=== PATIENT | female | born 1985 | race Caucasian/White ===

== ENCOUNTER 2024-01-09 19:09 | Observation (INO) | payer OTHER, SELFPAY ==
[2024-01-09 10:36] VITALS: BP 150/90
[2024-01-09 10:51] LABS: % Basophils 0.5 % (0-2); % Eosinophils 1.3 % (0-6); % Immature Granulocytes 0.1 % (0-0.5); % Lymphocytes 11.5 % (20.5-51.1); % Monocytes 6.3 % (1.7-9.3); % Neutrophils 80.3 % (42.2-75.2); Absolute Eosinophils 0.1 10^3/uL (0-0.7); Absolute Lymphocytes 0.9 10^3/uL (1.2-3.4); Absolute Monocytes 0.5 10^3/uL (0.1-0.6); Absolute Neutrophils 6.3 10^3/uL (1.4-6.5); Hematocrit 39.4 % (37.0-47.0); Hemoglobin 14.3 g/dL (12.0-16.0); Mean Corp Hgb Conc. 36.3 g/dL (33.0-37.0); Mean Corpuscular Hgb 30.8 pg (27.0-31.0); Mean Corpuscular Volume 84.9 fL (81.0-99.0); Mean Platelet Volume 9.4 fL (7.4-10.4); Nucleated Red Blood Cells % 0 %; Platelet Count 177 10^3/uL (130-400); Red Blood Cell Count 4.64 10^6/uL (4.20-5.40); Red Cell Dist. Width 12.3 % (11.5-14.5); White Blood Cell Count 7.8 10^3/uL (4.8-10.8)
[2024-01-09 11:09] LABS: ALT (SGPT) 13 U/L (0-35); AST (SGOT) 20 U/L (14-36); Albumin 4.6 g/dl (3.5-5.0); Alkaline Phosphatase 55 U/L (38-126); Blood Urea Nitrogen 16 mg/dl (7-17); Calcium 9.2 mg/dl (8.4-10.2); Carbon Dioxide 25 mmol/L (22-30); Chloride 105 mmol/L (98-107); Glucose 104 mg/dl (70-99); Potassium 3.8 mmol/L (3.5-5.1); Sodium 135 mmol/L (135-145); Total Bilirubin 1.3 mg/dl (0.2-1.3); Total Protein 7.4 g/dl (6.3-8.2); eGFR > 60.00
[2024-01-09 11:45] VITALS: BMI 20.3
--- NOTE | 2024-01-09 12:29 | ED.GENMED ---
History of Present Illness
General
Chief Complaint: Abdominal Pain
Source: patient and spouse
Time Seen by Provider: 01/09/24 12:05
Travel History
Have you had any contact with someone who has COVID-19?: No
Do you have any symptoms of coronavirus? Fever > 100 degrees, chills, cough, shortness of breath, sore throat, loss of taste or smell, muscle aches, or headache?: No
History of Present Illness
History of Present Illness:
38-year-old female with past medical history of migraines presenting emergency department for evaluation of sudden onset right-sided lower abdominal and back pain that started earlier this morning around 8 AM, still present albeit somewhat improved.
Patient states that throughout the weekend she was dealing with a head cold which she was managing with just [id number] medications with some relief. She states this morning she went downstairs to start working when she noticed the back pain
and decided she was just going to go upstairs to lay down and about 30 minutes after laying down and started to experience the worsening flank pain that is now radiating towards the right lower abdomen. No other symptoms including nausea or
vomiting, urinary symptoms, hematuria, bowel changes. Patient states no concern for as she is previous hysterectomy. Also notes a history of appendectomy. She took 2 Tylenol and 1 Motrin around 7:30 AM. Patient notes a family history
of kidney stones. She also notes that she drinks large quantities of iced tea daily.
Past History
Past History
ED Past Medical History: Other (migraines)
ED Past Surgical History: Appendectomy, and Gynecological
Social History
Tobacco: Non-smoker
Alcohol: Occasional
Drug: None
Personal:
Living: with family
Employment: Employed
Review of Systems
Review of Systems
All Other Systems: ROS reviewed and negative except as documented in HPI and ROS
Phy Exam
Physical Exam
Physical Exam:
GENERAL: Alert , in no apparent distress but does appear quite uncomfortable especially with movement
EYE: clear conjunctiva b/l
HEAD: NCAT
ENT: mmm.
CARDIAC: Regular rate and rhythm .
LUNGS: Clear breath sounds bilaterally, no acute respiratory distress, no wheezes/rales/rhonchi
ABDOMEN: Soft, right lower abdominal tenderness going towards the right, no r/g
NEUROLOGICAL: Alert and oriented
SKIN: Warm and dry, skin intact.
MUSCULOSKELETAL: well perfused.
PSYCH: Normal and appropriate interaction.
Scores
Heart Failure Risk
Heart Failure Risk Score: Not Applicable
Heart Score for Chest Pain Patients
STEMI patient?: Not applicable
Withdrawal Assessment of Alcohol
Withdrawal Assessment Completed?: Not applicable
Course
Orders/Labs/Results
Orders:
Orders
01/09/24 10:46
CMP [Comprehensive Metabolic Panel] Urgent
Complete Blood Count/With Diff Urgent
01/09/24 12:23
CT Abd/pel Without Iv Or Oral Urgent
Comment:
Reason For Exam: right sided abd pain, hx appy and hysterectomy
Urinalysis Reflex To Culture Urgent
0.9% Sodium Chloride 1000 ml [Nss] 1,000 ml IV BOLUS
Ketorolac [Toradol] 30 mg IV NOW STA
01/09/24 13:45
HYDROmorphone [Dilaudid] 1 mg IV NOW STA
Ondansetron Injectable [Zofran] 4 mg IV NOW STA
US Transvaginal [US Pelvis W Transvag Combined] Urgent
Comment:
Reason For Exam: large right ovarian mass, concern for torsion
01/09/24 13:46
HYDROmorphone [Dilaudid] 1 mg .ROUTE .STK-MED ONE
Ondansetron Injectable [Zofran] 4 mg .ROUTE .STK-MED ONE
01/09/24 13:53
Type+Screen Urgent
PTT Urgent
Prothrombin Time Urgent
01/09/24 15:44
Ondansetron Injectable [Zofran] 4 mg IV NOW STA
01/09/24 16:35
HYDROmorphone [Dilaudid] 1 mg IV NOW STA
Ondansetron Injectable [Zofran] 4 mg IV NOW STA
01/09/24 16:45
0.9% Sodium Chloride 1000 ml [Nss] 1,000 ml IV BOLUS
01/09/24 16:50
DATA COLLECTION TECHNICIAN CONSULT Urgent
Consulting Provider: Aundrea Nunez
Was physician already notified: Yes
Abnormal Lab Results
01/09/24 01/09/24
10:46 13:53
Absolute Lymphs (auto) 0.9 L 10^3/uL
(1.2-3.4)
Neutrophils % 80.3 H %
(42.2-75.2)
Lymphocytes % 11.5 L %
(20.5-51.1)
PT 14.8 H Sec
(11.4-14.6)
Glucose 104 H mg/dl
(70-99)
01/09/24 10:46
01/09/24 10:46
Vital Signs
Initial and Last Documented VS:
Initial Vital Signs
Temp Pulse Resp BP Pulse Ox
99.0 F 92 16 150/90 99
01/09/24 10:36 01/09/24 10:36 01/09/24 10:36 01/09/24 10:36 01/09/24 10:36
Last Documented Vital Signs
Temp Pulse Resp BP Pulse Ox
99.0 F 55 16 136/79 100
01/09/24 10:36 01/09/24 16:35 01/09/24 16:35 01/09/24 16:35 01/09/24 16:35
MDM/Problems Addressed
Differential Diagnosis Includes:
Renal/ureteral colic, UTI, no concern for given previous hysterectomy, no concern for appendicitis given previous appendectomy, muscular pain
MDM/Problems Addressed:
38-year-old female presenting emergency department for sudden onset right-sided lower abdominal and flank pain. She had been dealing with a mild cold over the last 2 days. Multiple other family members were sick with similar cold during the
preceding week. She appears quite uncomfortable with clearly reproducible tenderness in the right lower abdomen and flank area. I do suspect given the sudden onset pain combined with location of pain that renal/ureteral colic is most likely
diagnosis. Patient notes a strong family history as well as drinks large quantities of iced tea daily which would certainly put her at risk for kidney stones. Will treat with Toradol. IV fluids ordered. CT of the abdomen pelvis ordered as well.
Initial set of labs ordered in triage are unremarkable. Reassessment following.
Chronic conditions affecting care: Previous abdomnial surgery
Acute Exacerbation and/or Progression of Chronic Illness: Previous abdomnial surgery
*Radiology
Radiology exam reviewed: radiology read reviewed
*Pulse Oximetry
Patient hypoxic: no
*Critical Care Note
Total Time (30-74mins, 75-104mins- exclusive of procedures): Not Applicable
Comment
Comment:
1:45 PM: Patient's CT shows a probable ovarian mass measuring 10.8 x 10 cm. Radiology recommends pelvic ultrasound or MRI. While walking up to talk to the patient was informed by nursing staff patient was in the bathroom attempting to give a urine
sample when she near fainted. She was brought back to the room and appears pale and is in considerable pain. 1 mg of Dilaudid and 4 of Zofran was ordered for pain control. Given her near syncope combined with her increased pain and CT finding I
do have concern for an ovarian torsion. [place] text was sent immediately to PROFESSOR OF LITERATURE artifacts conservator as well as an order for transvaginal ultrasound to be done stat. Awaiting consultation from PROFESSOR OF LITERATURE.
2:40 PM: PROFESSOR OF LITERATURE reviewed records. Reassured that this is not torsion as patient has had prior hysterectomy. Agrees with plan to attempt to control pain and outpatient follow-up. I was able to get contact with patient's PROFESSOR OF LITERATURE office and patient
unfortunately has not been seen in over 4 years. They were okay with making an appointment for her tomorrow morning at 9:30 AM assuming we are able to discharge home
3:30 PM: Patient with continued pain so an additional 1 mg Dilaudid ordered. 4 mg Zofran as well.
Patient Management
Discussion with other providers: Hospitalist and Expansion Joint Builder
Escalation/DeEscalation of care consider admission/obs:
Despite multiple rounds of pain medication and antiemetics patient continues to be significantly uncomfortable. Her ultrasound does show a large 10 x 10 cm ovarian cyst which is likely a simple cyst however cannot rule out malignancy and recommend
further outpatient workup. Due to the patient's continued symptoms I was unable to discharge home. Hospitalist team to admit with PROFESSOR OF LITERATURE in consult.
ED Attending Note
-
Portions of this chart may have been created with voice recognition software.� Occasional wrong word or��sound alike� substitutions may have occurred due to the inherent limitations of voice recognition software.
Discharge Plan
Departure
Patient Disposition: Admit
Date of Disposition: 01/09/24
Time of Disposition: 16:48
Presentation/result/management discussed w/ accepting MD/DO: Hospitalist
Patient with high blood pressure during this ER visit?: Yes
Discharge Problem:
Cyst of right ovary
Instructions: Ovarian Cyst (DC)
Prescriptions:
New
oxycodone-acetaminophen [Percocet] 5-325 mg tablet
1 tab PO Q6HPRN PRN (Reason: pain) Qty: 10 0RF
ondansetron 4 mg tablet,disintegrating
4 mg PO TIDPRN PRN (Reason: nausea/vomiting) Qty: 10 0RF
naproxen 500 mg tablet
500 mg PO BID PRN (Reason: Pain) Qty: 15 0RF
Referrals:
Kim Huston CRNP [Family Provider] -
Activity Restrictions/Additional Instructions:
You have an appointment January 09 at 0930 at the [place] office located at [address] [place] [address]. Results were faxed to your OBGYN. Please bring your lab work from today with you as well
Interventions
Interventions:
*Risk Screen - Suicide Last Done: 01/09/24 11:45
*General Assessment Last Done: 01/09/24 10:36
*Neglect/Abuse Screening Last Done: 01/09/24 11:45
ED- Fall Risk Assessment Last Done: 01/09/24 11:45
*ED COVID-19 Vaccine History Last Done: 01/09/24 11:45
RR-Loaymq-Npxsvpxajw Assessment Last Done: 01/09/24 11:45
Discharge Date and Time
Print Language: TAJIK
[2024-01-09] MEDS: NSS 1000 IV ×2 (12:35→16:45)
[2024-01-09] MEDS: TORADOL 30 MG IV (12:35)
[2024-01-09] MEDS: ZOFRAN 4 MG IV ×3 (13:48→16:42)
[2024-01-09] MEDS: DILAUDID 1 MG IV ×2 (13:48→16:43)
[2024-01-09 13:49] VITALS: BP 100/70
[2024-01-09 13:55] VITALS: BP 106/66
[2024-01-09 14:14] LABS: INR 1.18; PT 14.8 Sec (11.4-14.6)
[2024-01-09 14:15] LABS: APTT 28.2 Sec (23.4-35.0)
[2024-01-09 14:46] VITALS: BP 114/74
[2024-01-09 16:35] VITALS: BP 136/79
--- NOTE | 2024-01-09 17:38 | HPS.HSE ---
Addendum entered and electronically signed by Christine Archer MD 01/09/24 18:42:
Patient seen and examined independently--spoke with Dr. Nunez--agree with findings as set forth by nurse practitioner
GENERAL: well developed, well nourished, female in apparent distress--sitting in dark with eyes covered--feeling nauseous
HEENT: NC/AT
HEART: regular rate and rhythm, +S1, +S2
LUNGS : clear to auscultation bilaterally
ABDOM: soft, nondistended, + bowel sounds--RLQ tenderness to palpation
EXT: no cyanosis, clubbing, or edema
NEUROLOGIC: grossly intact
Intractable right lower quadrant abdominal pain-- likely due to right ovarian adnexal cyst versus possible peritoneal adhesion-- 4 para 4 section x 4--Hysterectomy secondary to anemia/menorrhagia 4 years ago--apprec BRAND MANAGER input--NO
plans for surgery tonight--pain control and d/c to outpt BRAND MANAGER in AM--Pain unable to be controlled in ER- Patient given Toradol and Dilaudid without relief and Zofran--Continue Motrin 600 mg 4 times daily alternating with Percocet 5/325mg 4 times
daily, bowel regimen--IV Phenergan as no relief with 12 mg of Zofran--Patient with appointment tomorrow 01/10/[address]24 [place] [facility] at 9:30 AM
Essential HTN--Continue amlodipine 5 mg daily--Patient stopped her metoprolol 2 weeks ago
ADHD-Continue Adderall 5 mg twice daily
Migraine Hx
DVT prophylaxis--SCDs
Full code
Original Note:
Family Physician
-
Family Physician: Kim Huston
Chief Complaint
-
Abdominal pain
History of Present Illness
38-year-old female states today she developed sharp right lower quadrant abdominal pain along with thoracic back pain at 8 AM she reports she attempted to use heat which did not improve the pain. She reports she took 2 Tylenol and 1 Motrin around
730 this a.m. as she was having thoracic back pain this morning while walking up and down the steps. She was worried she might have kidney stones as her friends have had similar symptoms although she never had kidney stones herself. She had
hysterectomy approximately 4 years ago secondary to anemia/menorrhagia. She is 4 para 4. She denies any vaginal discharge or bleeding, fever, chills, diarrhea chest pain, palpitations, shortness of breath, cough. While in the ER she
received 2 doses of IV Dilaudid, single dose Toradol and 12 mg of Zofran for her nausea and vomiting with no relief. It was decided she would be kept overnight for pain control goal is to have patient follow-up in the a.m. with her graphite mill operator at
[address] [place] BR[facility] at [facility] as this is who completed her hysterectomy. Other past medical history includes hypertension, ADHD, migraines.
Medical History
Past Medical History
Past Medical History: Reports Other
Additional Past Medical History:
Migraines
Hiatal hernia
ADHD
Past Surgical History: Reports Other
Additional Past Surgical History:
Hysterectomy secondary to anemia/menorrhagia 4 years ago by [place] [facility]
section x 4
Appendectomy
Hernia repair
Social History
Tobacco: Non-smoker
Alcohol: Occasional
Drug: None
Personal:
Living: With Family ()
Family History
Family History: Other (No family history of ovarian cyst )
Allergies / Home Medications
Allergies reflects when Allergies were last updated in [facility].
Home Medications with original date entered in [facility]
Allergy/Medication List:
Allergies
Allergy/AdvReac Type Severity Reaction Status Date / Time
morphine AdvReac Itching Verified 01/09/24 10:41
Home Medications
Mushroom Compound 1 tab PO BIDPRN PRN supplement 01/09/24
acetaminophen 325 mg tablet (Tylenol) 650 mg PO TIDPRN PRN mild pain 01/09/24
amlodipine 5 mg tablet 5 mg PO DAILY 01/09/24
dextroamphetamine-amphetamine 10 mg tablet 5 mg PO BID@0800,1300 PRN ADHD 01/09/24
ibuprofen 200 mg tablet (Advil) 200 mg PO Q6H PRN mild pain 01/09/24
naproxen 500 mg tablet 500 mg PO BID PRN Pain #15 tabs 01/09/24
ondansetron 4 mg disintegrating tablet 4 mg PO TIDPRN PRN nausea/vomiting #10 tabs 01/09/24
oxycodone-acetaminophen 5 mg-325 mg tablet (Percocet) 1 tab PO Q6HPRN PRN pain #10 tabs 01/09/24
Review of Systems
-
History Source: Patient and Family ( at bedside)
A 12 point ROS was completed and negative except as noted: Yes
Constitutional: Denies Fever, Fatigue or Chills
EENT: Denies Sore Throat or Runny Nose
Respiratory: Denies Cough or Trouble Breathing
Cardiac: Denies Chest Pain, Diaphoresis or Syncope
Abdomen/GI: Reports Abdominal Pain (Right lower quadrant), Nausea and Vomiting; Denies Diarrhea, Constipated, Bloody Stools or Black Stools
: Denies Dysuria, Frequency, Flank Pain, Incontinence, Difficulty Voiding or Urgency
Musculoskeletal: Denies Joint Pain or Edema
Skin: Denies Itching or Rash
Neurological: Denies Dizzy, Headache or Weakness
Endocrine: Reports No Symptoms
Hematologic/Lymphatic: Reports No Symptoms
Psych: Reports Calm
Physical Exam
Vital Signs
Vital Signs
Temp Pulse Resp BP Pulse Ox
99.0 F 55 16 136/79 100
01/09/24 10:36 01/09/24 16:35 01/09/24 16:35 01/09/24 16:35 01/09/24 16:35
Physical Exam
General: Conversant and Pain; No Fever or Chills
HEENT: NormoCephalic, Anicteric, PERRLA, [place] Conjunctivae and No Ptosis
Respiratory: Clear; No Wheezes, Rales or Rhonchi
Cardiac: S1/S2 and Regular Rhythm; No Murmur, Rub, Gallop or Peripheral Edema
GI: Soft, Non Distended, Normal Bowel Sounds, Tender (Right lower quadrant), No Hepatosplenomegaly and Other (Pelvic exam completed by Dr. Nunez at bedside patient tolerated manual exam well)
Genito-urinary: Deferred by me
Musculoskeletal: No Clubbing, No Cyanosis and No Edema
Skin: Warm and Dry; No Rash
Neuro: AO x 3, No Motor Deficits, Nonfocal/grossly intact, Cranial Nerves Intact and No Sensory Deficits; No Slurred Speech, Facial Droop or Tremors
Psych: Calm
Laboratory Results
-
01/09/24 10:46
01/09/24 10:46
Laboratory Results
PT 14.8 Sec (11.4-14.6) H 01/09/24 13:53
INR 1.18 01/09/24 13:53
APTT 28.2 Sec (23.4-35.0) 01/09/24 13:53
Total Bilirubin 1.3 mg/dl (0.2-1.3) 01/09/24 10:46
AST 20 U/L (14-36) 01/09/24 10:46
ALT 13 U/L (0-35) 01/09/24 10:46
Alkaline Phosphatase 55 U/L (38-126) 01/09/24 10:46
Data Reviewed
-
CT Scan: Report Reviewed by me
Lab Data: Labs Reviewed by me
Impression/Plan
-
Impression/plan:
Observation MedSurg
# Intractable right lower quadrant abdominal pain 2/2 right ovarian adnexal cyst versus possible peritoneal adhesion
# 4 para 4 section x 4
# Hysterectomy secondary to anemia/menorrhagia 4 years ago
-Consult BRAND MANAGER Dr. Nunez examined at bedside with myself present
-Pain unable to be controlled in ER- Patient given Toradol and Dilaudid without relief and Zofran
-Continue Tylenol , Motrin 600 mg 4 times daily alternating with Percocet 5/325mg 4 times daily, bowel regimen
-IV Phenergan as no relief with 12 mg of Zofran
-Patient with appointment tomorrow 01/10/[address] [place] [facility] at 9:30 AM
Ultrasound pelvic with transvaginal:
1 prior hysterectomy
2. Right ovary difficult to identify. Large mass in the right adnexa containing a central large cystic component. Mass measures 10.2 x 8.2 x 10.9 cm with blood flow.
3. Left ovary 20.7 x 1.7 x 2.2 cm normal configuration echogenicity and normal blood flow no free fluid in the pelvis
CT abdomen without IV or oral contrast:
1. Probable ovarian mass consider history of prior hysterectomy may be benign or malignant recommend pelvic ultrasound or MRI
2 Mild abdominal pelvic ascites
3. Probable hepatic cyst or hemangioma
4. Nonobstructing right renal stones
5. Moderate fecal material in the colon
6. Small hiatal hernia
#HTN�benign
139/79
Continue amlodipine 5 mg daily
Patient stopped her metoprolol 2 weeks ago
#ADHD
-Continue Adderall 5 mg twice daily
#Migraine Hx
DVT prophylaxis
SCDs
Full code
--- NOTE | 2024-01-09 18:13 | CS.OBGYN ---
Consult Summary - BUFFING LINE SET UP WORKER
-
Pt seen and examined. History obtained by the pt and her .
Consult dictated
There is no clinical or radiologic evidence of torsion or infection. No acute need for a auto wrecker surgical intervention at this time. The goal would be to get pt comfortable and be able to be discharged so she can follow up with her auto wrecker and an outpt
workup of this pelvic mass can be done
[2024-01-09] MEDS: PHENERGAN 50.5 MG IV (18:50)
[2024-01-09] MEDS: PERCOCET 5/325 1 TABLET PO ×2 (19:25→22:45)
[2024-01-09 22:32] VITALS: BMI 20.5
[2024-01-09 22:56] VITALS: BP 125/77
[2024-01-10] VITALS (10 sets, daily range): BP systolic 107–141; BP diastolic 69–89; PULSE 63–78
[2024-01-10] MEDS: MOTRIN 600 MG PO ×2 (00:17→06:11)
[2024-01-10 07:00] LABS: % Basophils 0.4 % (0-2); % Eosinophils 2.6 % (0-6); % Immature Granulocytes 0.2 % (0-0.5); % Lymphocytes 30.3 % (20.5-51.1); % Monocytes 9.9 % (1.7-9.3); % Neutrophils 56.6 % (42.2-75.2); Absolute Eosinophils 0.1 10^3/uL (0-0.7); Absolute Lymphocytes 1.4 10^3/uL (1.2-3.4); Absolute Monocytes 0.5 10^3/uL (0.1-0.6); Absolute Neutrophils 2.6 10^3/uL (1.4-6.5); Hematocrit 27.5 % (37.0-47.0); Mean Corp Hgb Conc. 35.3 g/dL (33.0-37.0); Mean Corpuscular Volume 87.9 fL (81.0-99.0); Mean Platelet Volume 9.9 fL (7.4-10.4); Nucleated Red Blood Cells % 0 %; Platelet Count 153 10^3/uL (130-400); Red Blood Cell Count 3.13 10^6/uL (4.20-5.40); Red Cell Dist. Width 12.3 % (11.5-14.5); White Blood Cell Count 4.6 10^3/uL (4.8-10.8)
[2024-01-10 07:23] LABS: Hemoglobin 9.7 g/dL (12.0-16.0)
[2024-01-10 07:35] LABS: Blood Urea Nitrogen 15 mg/dl (7-17); Calcium 7.9 mg/dl (8.4-10.2); Carbon Dioxide 23 mmol/L (22-30); Chloride 109 mmol/L (98-107); Estimated Creatinine Clearance 97 ml/min; Glucose 85 mg/dl (70-99); Potassium 3.7 mmol/L (3.5-5.1); Sodium 134 mmol/L (135-145); eGFR > 60.00
--- NOTE | 2024-01-10 07:40 | W.PN.HOSP.TC ---
Addendum entered and electronically signed by Christine Archer MD 01/10/24 09:52:
HGB repeat [address] scan with active bleeding
IR cannot embolize
Dr. Nunez taking to OR--transfuse 2 units pRBC
Original Note:
Today's Communication/Plan
-
STAT repeat CBC
STAT orthostatics
STAT CT angio abdomen/pelvis
Assessment / Plan
Assessment / Plan
pt is a 38 year old female
Intractable right lower quadrant abdominal pain-- likely due to right ovarian adnexal cyst versus possible peritoneal adhesion-- 4 para 4 section x 4--Hysterectomy secondary to anemia/menorrhagia 4 years ago--apprec HOME AIDE input--NO
plans for surgery tonight--pain control and d/c to outpt HOME AIDE in AM--pt feeling better off of IV dilaudid
acute anemia--concern for internal bleeding, ruptured cyst, retroperitoneal bleed--repeating CBC STAT, checking STAT CT angio ab/pelvis--STAT orthostatic VS--spoke with Dr. Nunez re: lab findings and plan (she agrees)
Essential HTN--Continue amlodipine 5 mg daily--Patient stopped her metoprolol 2 weeks ago
ADHD-Continue Adderall 5 mg twice daily
Migraine Hx
DVT prophylaxis--SCDs
Full code
Anticipated Discharge: Today
Subjective/Interval History
-
Date of Service: January 10, 2024
pt feeling better--no further nausea or vomiting
Objective Data
-
Labs:
Laboratory Results
01/10/24 01/10/24
06:38 07:27
WBC 4.6 L Pending
Hgb 9.7 L D Pending
Hct 27.5 L Pending
Plt Count 153 Pending
Sodium 134 L
Potassium 3.7
Chloride 109 H
Carbon Dioxide 23
BUN 15
Creatinine 0.7
Glucose 85
Calcium 7.9 L
Vital Signs:
max temp for 24 hours
01/09/24
10:36
Temp 99.0 F
Vital Signs
Temp Pulse Resp BP Pulse Ox
98.7 F 65 20 125/77 99
01/09/24 22:56 01/09/24 22:56 01/09/24 22:56 01/09/24 22:56 01/09/24 22:56
Review of Systems
-
All other systems: Reviewed and negative
Physical Exam
-
General: Well Developed, Well Nourished and No Apparent Distress
HEENT: Normocephalic and Atraumatic
Respiratory: Clear to Auscultation; Negative Wheezes or Rhonchi
Cardiac: Regular Rhythm and S1/S2; Negative Murmur
GI: Soft, Nondistended, Normal Bowel Sounds and Tender (RLQ)
Musculoskeletal: No Clubbing, No Cyanosis and No Edema
Neuro: Awake
[2024-01-10 07:56] LABS: Hematocrit 28.7 % (37.0-47.0); Hemoglobin 10.3 g/dL (12.0-16.0); Mean Corp Hgb Conc. 35.9 g/dL (33.0-37.0); Mean Corpuscular Hgb 31.3 pg (27.0-31.0); Mean Corpuscular Volume 87.2 fL (81.0-99.0); Mean Platelet Volume 9.6 fL (7.4-10.4); Platelet Count 160 10^3/uL (130-400); Red Blood Cell Count 3.29 10^6/uL (4.20-5.40); Red Cell Dist. Width 12.2 % (11.5-14.5)
[2024-01-10] MEDS: PERCOCET 5/325 1 TABLET PO ×2 (08:36→17:33)
[2024-01-10] MEDS: NORVASC 5 MG PO (08:36)
--- NOTE | 2024-01-10 10:13 | W.PN.GYN.DG ---
Today's Communication / Plan
-
To the OR
Assessment / Plan
-
Assessment: Pt with a large ovarian cyst now with active bleeding. Hgb dropped from 14 to 9
Plan:
Pt to go to OR emergently. Blood and surgical consents have been signed
Subjective / Objective Data
Subjective Data
Overnight pt's HGb dropped from [address] angiogram done shows bleeding from the ovarian cyst. IR not able to embolize. Will need to go to the OR emergently. At this point pt is hemodynamically stable. OR called. Planned procedure Lps RSO/
Possible Ex lab. R/B/A all d/w pt. Risks include bleeding, infection, injury to bowel/ bladder/ ureters. Increased risk of injury d/w pt given her extensive surgical history includ umbilical hernia repair/ hyster/ appy and 4 c/s. Possibility of
needing an exlap d/w pt. Informed consent obtained. Written consent signed and on chart
Consent for blood also signed by pt. Keep NPO
Objective Data
Vital Signs
Temp Pulse Resp BP Pulse Ox
97.9 F 63 16 120/77 98
01/10/24 07:00 01/10/24 07:00 01/10/24 07:00 01/10/24 07:00 01/10/24 07:00
Intake & Output
01/09/24 01/10/24 01/11/24
06:59 06:59 06:59
Other:
Number of approximated MODERATE 1
amounts of urine
Physical Exam
-
Abdomen: Soft, Tender and Distended
Bowel Sounds: Decreased
Data Reviewed
-
Lab Data
01/10/24 07:44
01/10/24 06:38
[2024-01-10 12:58] LABS: % Basophils 0.6 % (0-2); % Eosinophils 2.7 % (0-6); % Immature Granulocytes 0.2 % (0-0.5); % Lymphocytes 21.6 % (20.5-51.1); % Monocytes 6.3 % (1.7-9.3); % Neutrophils 68.6 % (42.2-75.2); Absolute Eosinophils 0.1 10^3/uL (0-0.7); Absolute Lymphocytes 1.1 10^3/uL (1.2-3.4); Absolute Monocytes 0.3 10^3/uL (0.1-0.6); Absolute Neutrophils 3.5 10^3/uL (1.4-6.5); Hematocrit 33.8 % (37.0-47.0); Hemoglobin 11.7 g/dL (12.0-16.0); Mean Corp Hgb Conc. 34.6 g/dL (33.0-37.0); Mean Corpuscular Hgb 30.9 pg (27.0-31.0); Mean Corpuscular Volume 89.2 fL (81.0-99.0); Mean Platelet Volume 9.6 fL (7.4-10.4); Nucleated Red Blood Cells % 0 %; Platelet Count 163 10^3/uL (130-400); Red Blood Cell Count 3.79 10^6/uL (4.20-5.40); Red Cell Dist. Width 12.3 % (11.5-14.5); White Blood Cell Count 5.1 10^3/uL (4.8-10.8)
[2024-01-10] MEDS: MOTRIN PO (13:28)
[2024-01-10] MEDS: PERCOCET 5/325 PO (13:28)
--- NOTE | 2024-01-10 17:41 | W.DCSUMMARY ---
Discharge Summary
Discharge Data
Date of Admission: 01/09/24
Date of Discharge: 01/10/24
-
Pending Results: Yes
Additional Pending Results:
surgical path specimen
Hospital Course
Primary care physician : Kim Huston
Principal Discharge diagnosis : Ruptured ovarian cyst with active bleeding
Chronic Discharge diagnosis : Essential hypertension, ADHD, migraine history
Hospital Course : Patient is a 38-year-old female who developed sharp right lower quadrant abdominal pain along with thoracic back pain starting at 8 AM on the morning of admission. Heat did not improve the pain. She took 2 Tylenol and 1 Motrin
which also did not help. She was worried she might have kidney stones and presented to the emergency department. She did have a hysterectomy 4 years prior to admission secondary to anemia and menorrhagia. She denied any vaginal bleeding or
discharge, fever, chills, diarrhea, chest pain or other symptoms. She received 2 doses of IV Dilaudid and Toradol along with 12 mg of Zofran without any relief. DETAIL MANAGER was consulted. Decision was patient should be kept overnight and follow-up with a
cogeneration operator the next morning.
Problem #1: Ruptured ovarian cyst with active bleeding. Patient was feeling better after stopping IV Dilaudid and starting on oral Percocet. When I arrived to discharge the patient this morning in an attempt to get her to her DETAIL MANAGER appointment, I
was informed that the patient's hemoglobin dropped from 14 on admission to 9. She was not on IV fluids. Repeat hemoglobin returned at 10. CT angiogram of the abdomen and pelvis was performed which showed acute bleeding. Interventional radiology
was notified but they could not do anything based on the location. DETAIL MANAGER was notified and the patient was taken to the operating room where ruptured ovarian cyst was removed. Patient was given 1 unit of packed red blood cells. She is stable and has
been cleared for discharge by DETAIL MANAGER.
Problem #2: All other medical issues. These include Essential hypertension, ADHD, migraine history. These medical issues were stable during her hospitalization. Medications were continued as able.
Patient has been cleared for discharge by DETAIL MANAGER after surgical removal of the right ovary.
Important imaging findings :
CT ANGIO ABDOMEN/PELVIS IMPRESSION: Findings concerning for mild active bleeding along the anterior right lateral aspect of the known pelvic mass likely a hemorrhagic ovarian cyst. (The mass is grossly stable in size)
Progressed moderate free fluid in the abdomen and pelvis of varying densities suggesting hemorrhagic products.
Tiny bilateral pleural effusions. New
Nonobstructing right renal stones. Stable
Hepatic hemangioma. Stable
Procedure findings : Ruptured ovarian cyst.
Discharge Plan
-
Patient Disposition: Home (Routine Discharge)
Discharge Diagnosis/Procedures: s/p Lps RSO for ruptured hemorrhagic cyst
Diet: As tolerated
Activity: No strenuous activity
Additional Activity: No heavy lifting or bending. Nothing vaginal for 2 weeks
Driving Restrictions: Not until seen by your Dr
Bathing Restrictions: No tub baths/ No swimming
Wound Care: Keep incisions clean and dry
Activity Restrictions/Additional Instructions:
Follow up with me in the office in 1-2 weeks. Please call office for an appointment at
Referrals:
Aundrea Nunez MD [Active] - in one to two weeks
Kim Huston CRNP [Family Provider] - in less than 1 week
Prescriptions:
New
oxycodone-acetaminophen [Percocet] 5-325 mg tablet
1 tab PO Q6HPRN PRN (Reason: pain) Qty: 10 0RF
ondansetron 4 mg tablet,disintegrating
4 mg PO TIDPRN PRN (Reason: nausea/vomiting) Qty: 10 0RF
naproxen 500 mg tablet
500 mg PO BID PRN (Reason: Pain) Qty: 15 0RF
oxycodone-acetaminophen 5-325 mg Tablet
1 tab PO QID Qty: 20 0RF
Continued
acetaminophen [Tylenol] 325 mg Tablet
650 mg PO TIDPRN PRN (Reason: mild pain)
dextroamphetamine-amphetamine 10 mg Tablet
5 mg PO BID@0800,1300 PRN (Reason: ADHD)
Patient Comments:
01/09/2024, pt. takes half a tablet BIDPRN@0800,1300 on days that she works and she usually skips taking this med. on the weekends.
amlodipine 5 mg Tablet
5 mg PO DAILY
ibuprofen [Advil] 200 mg Tablet
200 mg PO Q6H PRN (Reason: mild pain)
Mushroom Compound
1 tab PO BIDPRN PRN (Reason: supplement)
Discharge Orders:
Discharge Patient (As Directed); Ordered 01/10/24
Ordered By: Aundrea Nunez
Discharge Date and Time
Print Language: URDU
== END 2024-01-10 18:02 | disposition home or self-care (01) ==
LOC: 3 WEST ACU 19:09
PROVIDERS: Clinical Nurse Specialist Family Health; Physician Assistant Medical; ADMITTING PHYSICIAN Internal Medicine; CONSULT PHYSICIAN Obstetrics & Gynecology Gynecology; EMERGENCY PHYSICIAN Emergency Medicine; FAMILY PHYSICIAN Nurse Practitioner Family
DX: N83.201 Unspecified ovarian cyst, right side (principal); K66.1 Hemoperitoneum; D62 Acute posthemorrhagic anemia; R10.31 Right lower quadrant pain; G43.909 Migraine, unspecified, not intractable, without status migrainosus; I10 Essential (primary) hypertension; F90.9 Attention-deficit hyperactivity disorder, unspecified type; N20.0 Calculus of kidney; M54.6 Pain in thoracic spine; J90 Pleural effusion, not elsewhere classified; D18.03 Hemangioma of intra-abdominal structures; K44.9 Diaphragmatic hernia without obstruction or gangrene; Z90.49 Acquired absence of other specified parts of digestive tract; Z90.710 Acquired absence of both cervix and uterus; Z84.1 Family history of disorders of kidney and ureter; Z88.5 Allergy status to narcotic agent
CPT/HCPCS: 58661; 88305; 36430; 74174; 74176; 76830; 76856; 80048; 80053; 85025; 85027; 85610; 85730; 86850; 86900; 86901; 86920; 96361; 96374; 96375; 96376; 99285; G0378; P9016; Q9967